=== PATIENT | male | born 1965 | race Hispanic/Latino ===

== ENCOUNTER 2016-10-19 08:27 | Emergency (ER) | payer BC ==
[2016-10-19 08:36] VITALS: BMI 25.8
--- NOTE | 2016-10-19 09:01 | ED PDOC ---
Arrival/HPI - General Historian: Patient - History of Present Illness Time/Duration: < week Symptom Onset: Gradual Symptom Course: Unchanged - General Chief Complaint: GI Problem Time Seen by Provider: 10/19/16 08:56 - History of Present Illness Narrative History of Present Illness (Text): 50 M with PMH of Pulmonary embolism, diverticulosis/diverticulitis, HTN presents to ED with complaint of nausea/vomiting since . Patients states that he had a heavy day of drinking with a friend. He states that he drinks everyday (8-10 drinks). Patient is unable to eat or drink anything without vomiting. It started with solid foods then today he drank ensure but could not keep it down. He reports the episodes of vomiting are non-bilious and non-bloody. He states its same color as food he eats. Patient currently denying any abdominal pain, hematemesis, coffee ground emesis. Nothing alleviates his symptoms while eating/drinking exacerbates them. Admits to anxiety and palpitations. Denies fever/chills, cp, sob, auditory/visual hallucinations, amnesia, ataxia, seizures, tremors. PMD: Dr. Nazario ([facility]) Past Medical History - Provider Review Nursing Documentation Reviewed: Yes - Travel History Have you recently traveled outside [place] w/in the past 3 mons?: No - Infectious Disease Hx of Infectious Diseases: None - Tetanus Immunization Tetanus Immunization: Unknown - Cardiac Hx Cardiac Disorders: No Hx Hypertension: Yes - Pulmonary Hx Respiratory Disorders: Yes Hx Emphysema: Yes Hx Pulmonary Embolism: Yes - Neurological Hx Neurological Disorder: No - HEENT Hx HEENT Disorder: No - Renal Hx Renal Disorder: No - Endocrine/Metabolic Hx Endocrine Disorders: No - Hematological/Oncological Hx Blood Disorders: No Hx Blood Transfusions: No Hx Bruising: No Hx Gum Bleeding: No - Integumentary Hx Dermatological Disorder: No - Musculoskeletal/Rheumatological Hx Musculoskeletal Disorders: No - Gastrointestinal Hx Gastrointestinal Disorders: Yes Hx Diverticulitis: Yes - Genitourinary/Gynecological Hx Genitourinary Disorders: No - Psychiatric Hx Psychophysiologic Disorder: No Hx Substance Use: No - Surgical History Hx Orthopedic Surgery: Yes (Knee surgery for meniscal tear) Other/Comment: umbilical hernia - Anesthesia Hx Anesthesia: Yes Hx Anesthesia Reactions: No Hx Malignant Hyperthermia: No - Suicidal Assessment Feels Threatened In Home Enviroment: No Family/Social History - Physician Review Nursing Documentation Reviewed: Yes Family/Social History: Unknown Family HX Smoking Status: Heavy Smoker > 10 Cigarettes Daily Hx Alcohol Use: Yes (5/6 beers daily) Hx Substance Use: No Hx Substance Use Treatment: No Allergies/Home Meds Allergies/Adverse Reactions: Allergies No Known Allergies Allergy (Verified 01/05/15 16:11) Home Medications: Home Meds Medication Instructions Recorded Confirmed Dabigatran [Pradaxa] 75 mg PO DAILY 10/19/16 10/19/16 Lisinopril [Zestril] 10 mg PO DAILY 10/19/16 10/19/16 Review of Systems - Review of Systems Constitutional: absent: Fatigue, Weight Change, Fevers, Night Sweats Eyes: absent: Vision Changes, Photophobia, Eye Pain ENT: absent: Hearing Changes, TMJ Pain Respiratory: absent: SOB, Cough, Sputum, Wheezing Cardiovascular: Palpitations. absent: Chest Pain, Calf Pain, ODELL, Syncope Gastrointestinal: Nausea, Vomiting. absent: Abdominal Pain, Constipation, Diarrhea, Hematochezia, Hematemesis Genitourinary Male: absent: Dysuria, Frequency, Hematuria Musculoskeletal: absent: Arthralgias, Back Pain, Neck Pain, Joint Swelling, Myalgias Neurological: absent: Headache, Dizziness, Focal Weakness, Facial Droop, Disequilibrium Endocrine: absent: Diaphoresis, Polyuria, Polydipsia Hemo/Lymphatic: absent: Adenopathy, Easy Bleeding, Easy Bruising Psychiatric: absent: Anxiety, Depression, Suicidal Ideation Physical Exam Vital Signs Reviewed: Yes Temperature: Afebrile Blood Pressure: Normal Pulse: Regular Respiratory Rate: Normal Appearance: Positive for: Well-Appearing, Comfortable Pain Distress: None Mental Status: Positive for: Alert and Oriented X 3 - Systems Exam Head: Present: Atraumatic, Normocephalic Pupils: Present: PERRL Extroacular Muscles: Present: EOMI Conjunctiva: Present: Normal Mouth: Present: Dry Respiratory/Chest: Present: Clear to Auscultation, Good Air Exchange Cardiovascular: Present: Regular Rate and Rhythm, Normal S1, S2, Peripheal Pulses Present Abdomen: Present: Normal Bowel Sounds. No: Tenderness, Distention, Peritoneal Signs, Rebound, Guarding, Hernias Back: No: CVA Tenderness Upper Extremity: Present: Normal ROM, NORMAL PULSES, Neurovascularly Intact, Capillary Refill < 2s Lower Extremity: Present: NORMAL PULSES, Neurovascularly Intact, Capillary Refill < 2 s Neurological: Present: GCS=15, CN II-XII Intact, Speech Normal, Motor Func Grossly Intact, Normal Sensory Function Skin: Present: Warm, Dry, Normal Color Lymphatic: No: Cervical Adenopathy, Axillary Adenopathy, Inguinal Adenopathy Psychiatric: Present: Alert, Oriented x 3, Normal Concentration, Normal Affect, Normal Mood Vital Signs Temp Pulse Resp BP Pulse Ox 10/19/16 12:21 61 16 111/66 99 10/19/16 11:07 97.9 F 63 18 114/72 100 10/19/16 08:43 98.3 F 88 18 111/77 98 Medical Decision Making ED Course and Treatment: Patient seen and examined with resident. Came up with treatment and disposition plan with resident. 50 year old male presents to the emergency department complaining of nausea and vomiting. Denies any other complaints. 10/19/16 12:14 On reevaluation, patient reports that he feels much better and would like to be discharged home. Patient's repeat abdominal exam is soft, nontender, non distended with positive bowel sounds in all 4 quadrants and no peritoneal signs. Patient is tolerating PO without any difficulty. Pt states he understands to return to the ER right away for new or worsening symptoms or for inability to f/u with PMD or specialist as instructed. Patient states that he fully agrees with and understands discharge instructions. States that he agrees with the plan and disposition. Verbalized and repeated discharge instructions and plan. I have given the patient opportunity to ask any additional questions. (Jaydon Meehan) CBC, CMP, MAg, Phos, Lipase, EKG caridac enzymes, UA, ABXR obstructive series ordered. Pepcid, zofran, ativan given. Clinical sobriety noted. Labs reviewed and no significant change from baseline. ABXR was negative. EKG showed NSR at 59 bpm. Patient feeling better after medication and fluids. He is tolerating PO intake of solid foods and liquids. Patient medically stable for discharge. Patient to follow up with PMD within 2-3 days. (Tomi Koroma) - Lab Interpretations Lab Results: 10/19/16 09:35 10/19/16 09:35 Lab Results 10/19/16 10:00: Lactate Dehydrogenase 371, Total Creatine Kinase 59, Troponin I < 0.01 D 10/19/16 09:35: Sodium 138, Potassium 4.7, Chloride 103, Carbon Dioxide 26, Anion Gap 14, BUN 19, Creatinine 0.9, Est GFR ( Amer) > 60, Est GFR (Non- Af Amer) > 60, Random Glucose 91, Calcium 9.6, Phosphorus 3.8, Magnesium 2.0, Total Bilirubin 0.9, AST 45, ALT 64 H, Alkaline Phosphatase 82, Total Protein 7.4, Albumin 4.2, Globulin 3.3, Albumin/Globulin Ratio 1.3, Lipase 118 10/19/16 09:35: WBC 6.7, RBC 4.33, Hgb 13.7 L, Hct 39.7 L, MCV 91.7, MCH 31.6, MCHC 34.5, RDW 12.7, Plt Count 157, MPV 9.2 10/19/16 09:27: Urine Opiates Screen Negative, Urine Methadone Screen Negative, Ur Barbiturates Screen Negative, Ur Phencyclidine Scrn Negative, Ur Amphetamines Screen Negative, U Benzodiazepines Scrn Negative, U Oth Cocaine Metabols Negative, U Cannabinoids Screen Negative 10/19/16 09:27: Urine Color Yellow, Urine Appearance Sl cloudy, Urine pH 6.5, Ur Specific Hubbard 1.025, Urine Protein 100 H, Urine Glucose (UA) Negative, Urine Ketones Negative, Urine Blood Small H, Urine Nitrate Negative, Urine Bilirubin Negative, Urine Urobilinogen 1.0 H, Ur Leukocyte Esterase Negative, Urine RBC 1 - 3, Urine WBC 0 - 2, Ur Epithelial Cells 0 - 2, Urine Other Mucus - RAD Interpretation Radiology Orders: 10/19/16 10:06 obstructive series [ABD 2 VIEWS (FLAT/UP OR DECUB)] [RAD] Stat - Medication Orders Current Medication Orders: Discontinued Medications Famotidine (Pepcid) 20 mg IVP STAT STA Stop: 10/19/16 09:17 Last Admin: 10/19/16 09:40 Dose: 20 mg Sodium Chloride (Sodium Chloride 0.9%) 1,000 mls @ 999 mls/hr IV .Q1H1M STA Stop: 10/19/16 10:19 Last Admin: 10/19/16 09:40 Dose: 999 mls/hr Lorazepam (Ativan) 1 mg IVP ONCE ONE PRN Reason: Protocol Stop: 10/19/16 09:17 Last Admin: 10/19/16 09:40 Dose: 1 mg Ondansetron HCl (Zofran Inj) 4 mg IVP STAT STA Stop: 10/19/16 09:17 Last Admin: 10/19/16 09:40 Dose: 4 mg Disposition/Present on Arrival - Present on Arrival Any Indicators Present on Arrival: No History of DVT/PE: No History of Uncontrolled Diabetes: No Urinary Catheter: No History of Decub. Ulcer: No History Surgical Site Infection Following: None - Disposition Have Diagnosis and Disposition been Completed?: Yes Disposition Time: 12:05 Patient Plan: Discharge - Disposition Diagnosis: Nausea & vomiting Disposition: HOME/ ROUTINE Condition: GOOD Discharge Instructions (ExitCare): Acute Nausea and Vomiting (ED) Additional Instructions: Thank you for letting us take care of you today. Your provider was Dr. Koroma. You were treated for Nausea/vomiting. The emergency medical care you received today was directed at your acute symptoms. If you were prescribed any medication, please fill it and take as directed. It may take several days for your symptoms to resolve. Return to the Emergency Department if your symptoms worsen, do not improve, or if you have any other problems. Please contact your doctor or call one of the physicians/clinics you have been referred to that are listed on the Patient Visit Information form that is included in your discharge packet. Bring any paperwork you were given at discharge with you along with any medications you are taking to your follow up visit. Our treatment cannot replace ongoing medical care by a primary care provider (PCP) outside of the emergency department. Thank you for allowing the [facility] team to be part of your care today. If you had an X-Ray or CT scan: A Radiologist will review the ED reading if any change in treatment is needed we will contact you. If you had a blood, urine, or wound culture: It will take several days for the results, if any change in treatment is needed we will contact you. If you had an STI test: It will take 48 hours for the results. Please call after 1 week if you have not heard back. Take Zofran ODT as prescribed Refrain from smoking and drinking alcohol Follow up with PMD within 2-3 days Please return to ED if symptoms persist or condition worsens Prescriptions: Ondansetron ODT [Zofran ODT] 4 mg PO Q6 PRN #30 odt PRN Reason: Nausea/Vomiting Referrals: Kiko Nazario MD [Staff Provider] - Follow up with primary
[2016-10-19] MEDS ORDERED: Sodium Chloride 0.9% 1,000 ML IV STA (09:19)
[2016-10-19] MEDS ORDERED: Folic Acid 1 MG, Thiamine 100 MG, Multivitamin (MVI) 10 ML in Dextrose 5% In Water 1,00... IV SCH (09:30)
[2016-10-19 09:38] LABS: PH,URINE 6.5 (4.7-8.0); URINE BILIRUBIN NEGATIVE (NEGATIVE); URINE BLOOD SMALL (NEGATIVE); URINE GLUCOSE (UA) NEGATIVE (NEGATIVE); URINE LEUKOCYTE ESTERASE NEGATIVE Leu/uL (NEGATIVE); URINE NITRATE NEGATIVE (NEGATIVE); URINE PROTEIN 100 mg/dL (<30 mg/dL)
[2016-10-19 09:48] LABS: HEMOGLOBIN 13.7 gm/dL (14.0-18.0); MEAN CELL VOLUME 91.7 fL (80.0-105.0); MEAN CORPUSCULAR HEMOGLOBIN 31.6 pg (25.0-35.0); MEAN CORPUSCULAR HGB CONC 34.5 g/dl (31.0-37.0); MEAN PLATELET VOLUME 9.2 fl (7.0-11.0); RBC 4.33 10^6/uL (3.5-6.1); RED CELL DISTRIBUTION WIDTH 12.7 % (11.5-14.5); WHITE BLOOD COUNT 6.7 10^3/ul (4.5-11.0)
[2016-10-19 09:49] LABS: URINE APPEARANCE SL CLOUDY (CLEAR); URINE COLOR YELLOW (YELLOW)
[2016-10-19 09:57] LABS: URINE EPITHELIAL CELLS 0 - 2 /hpf (0-5); URINE WBC 0 - 2 /hpf (0-6)
[2016-10-19 10:00] LABS: BARBITURATES, UR NEGATIVE (NEGATIVE); BENZODIAZEPINES, UR NEGATIVE (NEGATIVE); OPIATES, UR NEGATIVE (NEGATIVE); PHENCYCLIDINE, UR NEGATIVE (NEGATIVE)
[2016-10-19 10:00] LABS: ALB/GLOB RATIO 1.3 (1.1-1.8); ALBUMIN 4.2 g/dL (3.0-4.8); ALT/SGPT 64 U/L (7-56); AST/SGOT 45 U/L (15-59); BLOOD UREA NITROGEN 19 mg/dL (7-21); CALCIUM 9.6 mg/dL (8.4-10.5); GFR AFRICAN-AMERICAN > 60; GFR NON-AFRICAN AMERICAN > 60; LIPASE 118 U/L (23-300)
[2016-10-19 11:08] VITALS: TEMP 97.9
[2016-10-19 11:14] LABS: TROPONIN I < 0.01 ng/mL
--- NOTE | 2016-10-19 11:16 | RAD ---
HISTORY: nausea/vomiting COMPARISON: No prior. FINDINGS: BOWEL: Normal. No obstruction. No free air. BONES: Normal. OTHER FINDINGS: None. IMPRESSION: No active disease.
[2016-10-19 12:25] VITALS: BP 111/66; PULSE 61; RESP 16; O2SAT 99
--- NOTE | 2016-10-19 21:06 | CARD ---
APPROVED REPORT EKG Measurement Heart [id number] <Conclusion> Sinus bradycardia with sinus arrhythmia Otherwise normal ECG
== END 2016-10-19 12:21 | disposition home or self-care (01) ==
LOC: ED 08:27
DX: R11.2 Nausea with vomiting, unspecified (principal)
CPT/HCPCS: 74020; 80053; 81001; 82550; 83615; 83690; 83735; 84100; 84484; 85027; 93005; 96374; 96375; 99284; G0480; J2060; J2405; J7040

== ENCOUNTER 2017-09-04 21:18 | Emergency (ER) | payer BC ==
[2017-09-04 21:28] VITALS: BMI 26.6
[2017-09-04 21:29] VITALS: TEMP 97.7
[2017-09-04] MEDS: Albuterol-Ipratrop 3 mg / 0.5 (3 ml) UD IH SCH ×2 (21:30→21:46)
--- NOTE | 2017-09-04 21:38 | ED PDOC ---
Arrival/HPI - General Time Seen by Provider: 09/04/17 21:20 Historian: Patient - History of Present Illness Narrative History of Present Illness (Text): 09/04/17 21:30 A 51 year old male, whose past medical history includes Pulmonary embolism, diverticulosis/diverticulitis, HTN, presents to the emergency department for a complaint of chest pain and shortness of breath for the last 20 minutes. He describes the chest discomfort as tightness and pressure. He notes that he has a history of PE and notes complaint with meds. He notes that he takes Lisinopril , Pradaxa, and Chantax. The patient notes that he has stopped smoking. The patient denies fever, chills, headache, dizziness, numbness, tingling, weakness , cough, sore throat, abdominal pain, nausea, vomiting, diarrhea, neck pain, back pain, bowel/urinary symptoms/incontinence, trauma/injury, or any other complaints. PMD: Dr. Nazario Marble Setter: Dr. Mosher 09/05/17 06:20 Time/Duration: Prior to Arrival (20 minutes prior to arrival.) Symptom Onset: Sudden Symptom Course: Unchanged Activities at Onset: Rest, Light Context: Home Past Medical History - Provider Review Nursing Documentation Reviewed: Yes - Infectious Disease Hx of Infectious Diseases: None - Tetanus Immunization Tetanus Immunization: Unknown - Cardiac Hx Cardiac Disorders: No Hx Hypertension: Yes - Pulmonary Hx Respiratory Disorders: Yes Hx Emphysema: Yes Hx Pulmonary Embolism: Yes - Neurological Hx Neurological Disorder: No - HEENT Hx HEENT Disorder: No - Renal Hx Renal Disorder: No - Endocrine/Metabolic Hx Endocrine Disorders: No - Hematological/Oncological Hx Blood Disorders: No Hx Blood Transfusions: No Hx Bruising: No Hx Gum Bleeding: No - Integumentary Hx Dermatological Disorder: No - Musculoskeletal/Rheumatological Hx Musculoskeletal Disorders: No - Gastrointestinal Hx Gastrointestinal Disorders: Yes Hx Diverticulitis: Yes - Genitourinary/Gynecological Hx Genitourinary Disorders: No - Psychiatric Hx Psychophysiologic Disorder: No Hx Substance Use: No - Surgical History Hx Orthopedic Surgery: Yes (Knee surgery for meniscal tear) Other/Comment: umbilical hernia - Anesthesia Hx Anesthesia: Yes Hx Anesthesia Reactions: No Hx Malignant Hyperthermia: No - Suicidal Assessment Feels Threatened In Home Enviroment: No Family/Social History - Physician Review Nursing Documentation Reviewed: Yes Family/Social History: No Known Family HX Smoking Status: Heavy Smoker > 10 Cigarettes Daily Hx Alcohol Use: Yes (5/6 beers daily) Hx Substance Use: No Hx Substance Use Treatment: No Allergies/Home Meds Allergies/Adverse Reactions: Allergies No Known Allergies Allergy (Verified 09/04/17 21:27) Home Medications: Home Meds Medication Instructions Recorded Confirmed Dabigatran [Pradaxa] 75 mg PO DAILY 10/19/16 09/04/17 Lisinopril [Zestril] 10 mg PO DAILY 10/19/16 09/04/17 Review of Systems - Physician Review All systems were reviewed & negative as marked: Yes - Review of Systems Constitutional: absent: Fevers, Night Sweats ENT: absent: Sore Throat Respiratory: SOB. absent: Cough Cardiovascular: Chest Pain Gastrointestinal: absent: Abdominal Pain, Stool Changes, Diarrhea, Nausea, Vomiting Musculoskeletal: absent: Back Pain, Neck Pain Neurological: absent: Headache, Dizziness Physical Exam Vital Signs Reviewed: Yes Vital Signs Temp Pulse Resp BP Pulse Ox 09/04/17 23:24 84 18 106/64 97 09/04/17 23:23 84 18 106/64 97 09/04/17 22:46 87 18 102/59 L 98 09/04/17 21:45 20 98 09/04/17 21:28 97.7 F 110 H 32 H 103/62 90 L Temperature: Afebrile Blood Pressure: Hypertensive Pulse: Tachycardic Respiratory Rate: Normal Appearance: Positive for: Well-Appearing, Non-Toxic Pain Distress: None Mental Status: Positive for: Alert and Oriented X 3, other (Mildly anxious) - Systems Exam Head: Present: Atraumatic, Normocephalic Pupils: Present: PERRL Extroacular Muscles: Present: EOMI Conjunctiva: Present: Normal Mouth: Present: Moist Mucous Membranes Neck: Present: Normal Range of Motion Respiratory/Chest: Present: Wheezes (Wheezing bilaterally) Cardiovascular: Present: Regular Rate and Rhythm, Normal S1, S2. No: Murmurs Abdomen: No: Tenderness, Distention, Peritoneal Signs Back: Present: Normal Inspection Upper Extremity: Present: Normal Inspection. No: Cyanosis, Edema Lower Extremity: Present: Normal Inspection. No: Edema Neurological: Present: GCS=15, CN II-XII Intact, Speech Normal Skin: Present: Warm, Dry, Normal Color. No: Rashes Psychiatric: Present: Alert, Oriented x 3, Normal Insight, Normal Concentration Medical Decision Making ED Course and Treatment: 09/04/17 21:39 Impression: A 51 year old male presents to the emergency department for a complaint of shortness of breath and chest pain. wheezing on exam. consider copd, pe, acs. Plan: -- EKG -- Chest X-Ray -- Labs -- Urinalysis -- Medrol and Duoneb -- Reassess and disposition Progress Notes: 09/04/17 21:41 EKG: Ordered, reviewed, and independently interpreted the EKG. Rate : 106 BPM Rhythm : Sinus Tachycardia 09/04/17 23:36: Chest X-Ray read and interpreted by me shows no acute disease. 09/05/17 06:20 dimer neg. lasb negs. pt REFUSES repeat troponin no def exclude mi. asking for dc. wheezing resolved. asking for dc. - Lab Interpretations Lab Results: 09/04/17 21:35 09/04/17 21:35 Lab Results 09/04/17 22:40: Urine Color Colorless, Urine Appearance Clear, Urine pH 6.0, Ur Specific [place] 1.010, Urine Protein Negative, Urine Glucose (UA) Negative, Urine Ketones Negative, Urine Blood Negative, Urine Nitrate Negative, Urine Bilirubin Negative, Urine Urobilinogen 0.2, Ur Leukocyte Esterase Negative 09/04/17 21:35: PT 11.4, INR 1.00, APTT 33.9, D-Dimer, Quantitative < 200 09/04/17 21:35: Sodium 136, Potassium 3.9, Chloride 99, Carbon Dioxide 20 L, Anion Gap 21 H, BUN 16, Creatinine 0.9, Est GFR ( Amer) > 60, Est GFR ( Non-Af Amer) > 60, Random Glucose 105, Calcium 8.8, Magnesium 1.5 L, Total Bilirubin 0.3, AST 46, ALT 51, Alkaline Phosphatase 63, Lactate Dehydrogenase 483, Total Creatine Kinase 95, Troponin I < 0.01, NT-Pro-B Natriuret Pep 35.9, Total Protein 7.3, Albumin 4.4, Globulin 2.9, Albumin/Globulin Ratio 1.5 09/04/17 21:35: WBC 8.4 D, RBC 4.25, Hgb 13.2 L, Hct 37.6 L, MCV 88.5, MCH 31.1 , MCHC 35.1, RDW 12.5, Plt Count 191, MPV 9.3, Gran % 43.4 L, Lymph % (Auto) 47.2 H, Murray % (Auto) 6.5 H, Eos % (Auto) 2.5, Baso % (Auto) 0.4, Gran # 3.63, Lymph # (Auto) 4.0 H, Murray # (Auto) 0.5, Eos # (Auto) 0.2, Baso # (Auto) 0.03 I have reviewed the lab results: Yes - RAD Interpretation Radiology Orders: 09/04/17 21:27 CHEST PORTABLE [RAD] Stat - EKG Interpretation Interpreted by ED Physician: Yes Type: 12 lead EKG - Medication Orders Current Medication Orders: Discontinued Medications Albuterol/Ipratropium (Duoneb 3 Mg/0.5 Mg (3 Ml) Ud) 3 ml IH Q15M KB Stop: 09/04/17 22:01 Last Admin: 09/04/17 21:46 Dose: 3 ml Methylprednisolone (Solu-Medrol) 125 mg IVP STAT STA Stop: 09/04/17 21:28 Last Admin: 09/04/17 21:45 Dose: 125 mg IVP Administration Document 09/04/17 21:45 AD (Rec: 09/04/17 21:46 AD [id number]) Charges for Administration # of IVP Administrations 1 - Scribe Statement The provider has reviewed the documentation as recorded by the Adryanibchristina Bryan Provider Scribe Attestation: All medical record entries made by the Scribe were at my direction and personally dictated by me. I have reviewed the chart and agree that the record accurately reflects my personal performance of the history, physical exam, medical decision making, and the department course for this patient. I have also personally directed, reviewed, and agree with the discharge instructions and disposition. Disposition/Present on Arrival - Present on Arrival Any Indicators Present on Arrival: No History of DVT/PE: No History of Uncontrolled Diabetes: No Urinary Catheter: No History Surgical Site Infection Following: None - Disposition Have Diagnosis and Disposition been Completed?: Yes Diagnosis: Chest pain, COPD (chronic obstructive pulmonary disease) Disposition: HOME/ ROUTINE Disposition Time: 06:00 Condition: STABLE Discharge Instructions (ExitCare): COPD Including Emphysema (DC), Chest Pain ( DC), Chest Pain (ED) Additional Instructions: please follow up your doctor. return to er with worsening symptoms or concerns. you are requesting to be discharged without repeat testing, but you are able to return to er with any worsening symptoms or concerns. Prescriptions: Albuterol 0.083% [Albuterol 0.083% Inhal Korina (2.5 mg/3 ml) UD] 2.5 mg IH Q6 PRN #20 neb PRN Reason: Wheezing Mask, Face [Nebulizer Aerosol Mask Adult] 1 dev XX PRN PRN #1 dev PRN Reason: Wheezing Nebulizer [Aeroeclipse II] 1 each MC Q6 PRN #1 each PRN Reason: Wheezing Prednisone 50 mg PO DAILY #5 tablet Referrals: Kiko Nazario MD [Primary Care Provider] - Follow up with primary Forms: [employer] ([place])
[2017-09-04 21:46] LABS: BASO # 0.03 K/mm3 (0.0-2.0); BASO % 0.4 % (0.0-3.0); EOS # 0.2 (0.0-0.7); EOS % 2.5 % (1.5-5.0); GRAN # 3.63 (1.4-6.5); GRAN % 43.4 % (50.0-68.0); HEMOGLOBIN 13.2 g/dL (14.0-18.0); LYMPH % 47.2 % (22.0-35.0); MEAN CELL VOLUME 88.5 fl (80.0-105.0); MEAN CORPUSCULAR HEMOGLOBIN 31.1 pg (25.0-35.0); MEAN CORPUSCULAR HGB CONC 35.1 g/dl (31.0-37.0); MEAN PLATELET VOLUME 9.3 fl (7.0-11.0); MONO # 0.5 (0.1-0.6); MONO % 6.5 % (1.0-6.0); RBC 4.25 10^6/uL (3.5-6.1); RED CELL DISTRIBUTION WIDTH 12.5 % (11.5-14.5); WHITE BLOOD COUNT 8.4 10^3/ul (4.5-11.0)
[2017-09-04 21:55] LABS: PARTIAL THROMBOPLASTIN TIME 33.9 Seconds (25.1-36.5); PROTHROMBIN TIME 11.4 SECONDS (9.4-12.5)
[2017-09-04 22:03] LABS: ALB/GLOB RATIO 1.5 (1.1-1.8); ALBUMIN 4.4 g/dL (3.0-4.8); ALT/SGPT 51 U/L (7-56); AST/SGOT 46 U/L (17-59); BLOOD UREA NITROGEN 16 mg/dL (7-21); CALCIUM 8.8 mg/dL (8.4-10.5); GFR AFRICAN-AMERICAN > 60; GFR NON-AFRICAN AMERICAN > 60
[2017-09-04 22:13] LABS: B-TYPE NATRIURETIC PEPTIDE 35.9 pg/mL (0-450); TROPONIN I < 0.01 ng/mL
[2017-09-04 22:46] VITALS: RESP 18
[2017-09-04 22:54] LABS: URINE BILIRUBIN NEGATIVE (NEGATIVE); URINE BLOOD NEGATIVE (NEGATIVE); URINE GLUCOSE (UA) NEGATIVE (NEGATIVE); URINE LEUKOCYTE ESTERASE NEGATIVE Leu/uL (NEGATIVE); URINE PROTEIN NEGATIVE mg/dL (<30 mg/dL); URINE UROBILINOGEN 0.2 E.U./dL (<1 E.U./dL)
[2017-09-04 22:55] LABS: URINE APPEARANCE CLEAR (CLEAR); URINE COLOR COLORLESS (YELLOW)
[2017-09-04 23:01] LABS: D DIMER < 200 ng/mL (0-243)
[2017-09-04 23:24] VITALS: BP 106/64; PULSE 84; O2SAT 97
--- NOTE | 2017-09-05 08:17 | RAD ---
HISTORY: sob COMPARISON: 01/05/2015 FINDINGS: LUNGS: No active pulmonary disease. PLEURA: No significant pleural effusion identified, no pneumothorax apparent. CARDIOVASCULAR: Normal. OSSEOUS STRUCTURES: No significant abnormalities. VISUALIZED UPPER ABDOMEN: Normal. OTHER FINDINGS: None. IMPRESSION: No active disease.
--- NOTE | 2017-09-05 10:50 | CARD ---
APPROVED REPORT EKG Measurement Heart [id number] <Conclusion> Sinus tachycardia Otherwise normal ECG No Change except the rate is faster
== END 2017-09-04 23:24 | disposition home or self-care (01) ==
LOC: ED 21:18
DX: J44.9 Chronic obstructive pulmonary disease, unspecified (principal); R07.9 Chest pain, unspecified; I10 Essential (primary) hypertension; F17.210 Nicotine dependence, cigarettes, uncomplicated
CPT/HCPCS: 71045; 80053; 81003; 82550; 83615; 83735; 83880; 84484; 85025; 85378; 85610; 85730; 93005; 96374; 99284; J2930

== ENCOUNTER 2017-10-31 15:00 | Emergency (ER) | payer BC ==
[2017-10-31 15:11] VITALS: BMI 29.0
[2017-10-31 15:12] VITALS: RESP 18
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
[2017-10-31 15:44] LABS: BASO # 0.03 K/mm3 (0.0-2.0); BASO % 0.4 % (0.0-3.0); EOS # 0.1 (0.0-0.7); EOS % 1.1 % (1.5-5.0); GRAN # 3.99 (1.4-6.5); GRAN % 57.3 % (50.0-68.0); HEMOGLOBIN 13.4 g/dL (14.0-18.0); LYMPH # 2.4 (1.2-3.4); LYMPH % 34.5 % (22.0-35.0); MEAN CELL VOLUME 91.1 fl (80.0-105.0); MEAN CORPUSCULAR HEMOGLOBIN 31.4 pg (25.0-35.0); MEAN CORPUSCULAR HGB CONC 34.4 g/dl (31.0-37.0); MONO # 0.5 (0.1-0.6); MONO % 6.7 % (1.0-6.0); RBC 4.27 10^6/uL (3.5-6.1); RED CELL DISTRIBUTION WIDTH 13.2 % (11.5-14.5)
[2017-10-31 15:45] LABS: INR 1.05
[2017-10-31 15:54] LABS: ALB/GLOB RATIO 1.4 (1.1-1.8); ALBUMIN 4.4 g/dL (3.0-4.8); ALT/SGPT 69 U/L (7-56); AST/SGOT 59 U/L (17-59); BLOOD UREA NITROGEN 9 mg/dL (7-21); CALCIUM 8.5 mg/dL (8.4-10.5); GFR AFRICAN-AMERICAN > 60; GFR NON-AFRICAN AMERICAN > 60
--- NOTE | 2017-10-31 17:35 | RAD ---
Date of service: 10/31/2017 PROCEDURE: Radiographs of the Left Shoulder HISTORY: left shoulder pain, s/p fall COMPARISON: No prior. FINDINGS: BONES: Normal. No fracture. JOINTS: Normal. Glenohumeral and acromioclavicular joints preserved. No osteoarthritis. SOFT TISSUES: Normal. OTHER FINDINGS: None. IMPRESSION: Normal radiographs of the left shoulder.
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
[2017-10-31 18:13] VITALS: BP 125/79; PULSE 72; TEMP 98.6; O2SAT 98
--- NOTE | 2017-11-01 08:35 | CARD ---
APPROVED REPORT Date of service: 10/31/2017 EKG Measurement Heart [id number] <Conclusion> Normal sinus rhythm Normal ECG
== END 2017-10-31 18:11 | disposition home or self-care (01) ==
LOC: ED 15:00
DX: S06.0X0A Concussion without loss of consciousness, initial encounter (principal); W11.XXXA Fall on and from ladder, initial encounter; I10 Essential (primary) hypertension; Z79.01 Long term (current) use of anticoagulants; F17.210 Nicotine dependence, cigarettes, uncomplicated